=== PATIENT | male | born 1970 | race Caucasian/White ===

== ENCOUNTER 2020-10-22 08:13 | Emergency (ER) | payer OTHER, SELFPAY ==
--- NOTE | ~2020-10-22 | CT_ITS ---
EXAMINATION: CT cervical spine wo con DATE: 10/22/2020 09:00 INDICATION: Left arm weakness TECHNIQUE: Computed tomography (CT) of the cervical spine was performed without intravenous contrast. Automated exposure control and iterative reconstruction technique were employed. The dose-length pro duct was 603.67 mGy-cm. COMPARISON: None FINDINGS: Alignment is normal. Vertebral body heights are normal. No fractures. Mild disc height loss at C6-C7. Multilevel bilateral cervical uncovertebral and facet osteoarthritis. No significant cervical centra l canal or neural foraminal stenosis. Moderate facet osteoarthritis on the right at T2-T3 resulting i n mild right neural foraminal stenosis at this level. Cervical soft tissues, airway and apices of junior gs are unremarkable. IMPRESSION: 1. Minimal to mild cervical spondylosis. No acute osseous abnormality. Reviewed, dictated and finalized at location A. ER MEAT
--- NOTE | ~2020-10-22 | CT_ITS ---
EXAMINATION: CT lumbar spine wo [facility] EXAM DATE: 10/22/2020 09:00 INDICATION: Low back pain and left leg weakness/numbness. Symptoms 5 days. TECHNIQUE: Spiral CT of the lumbar spine was performed without contrast. Axial, coronal and sagittal images were reviewed. The dose-length product (DLP) for this examination was 1313.64 mGy-cm. The exposure was tailored according to patient size (auto mA exposure control), and iterative reconstruct ion (ASIR) was used as additional dose reduction technique. There is no prior study for comparison. FINDINGS: There is moderate disc disease at L5-S1, mild at the other lumbar levels. The vertebral bod ies are aligned in the AP dimension. Vertebral body heights are maintained. There are no acute fractu res identified. No spondylolysis. There are no osteoblastic or osteolytic lesions identified. Sigmoid diverticulosis. Paraspinal soft tissue is unremarkable. Level by level evaluation: T12-L1: Disc does not extend beyond the endplate margin. Facet arthropathy: Mild bilateral. Neural foraminal stenosis: No stenosis. Central canal stenosis: No stenosis. L1-L2: There is a minimal diffuse disc bulge. Facet arthropathy: Mild bilateral. Neural foraminal stenosis: Mild to moderate bilateral. Central canal stenosis: Mild. L2-L3: There is a mild diffuse disc bulge. Facet arthropathy: Mild. Neural foraminal stenosis: Mild to moderate right, mild left. Central canal stenosis: Mild to moderate. L3-L4: There is a mild to moderate diffuse disc bulge. Facet arthropathy: Mild to moderate. Neural foraminal stenosis: Mild to moderate bilateral. Central canal stenosis: Mild to moderate. L4-L5: There is a mild to moderate diffuse disc bulge. Facet arthropathy: Mild to moderate. Neural foraminal stenosis: Mild to moderate bilateral. Central canal stenosis: Mild. L5-S1: There is a mild to moderate diffuse disc bulge. Facet arthropathy: Mild to moderate. Neural foraminal stenosis: Moderate bilateral. Central canal stenosis: Mild. IMPRESSION: L5-S1 moderate spondylosis, mild to moderate at the levels above. No acute findings. Reviewed, dictated and finalized at location B. TH MANAGEMENT DIRECTOR IMPRESSION: L5-S1 moderate spondylosis, mild to moderate at the levels above. N o acute findings.
--- NOTE | ~2020-10-22 | CT_ITS ---
EXAMINATION: CT brain wo con DATE: 10/22/2020 09:01 INDICATION: Arm weakness. Visual disturbance with floaters . TECHNIQUE: Computed tomography (CT) of the head was performed without intravenous contrast. Sagittal and coronal reconstructions were performed. The mA was adjusted according to patient size. Iterative reconstruction technique was employed. The dose-length product was 605.33 mGy-cm. COMPARISON: None FINDINGS: No acute intracranial hemorrhage, acute infarction or abnormal extra axial fluid collection. There is minimal scattered white matter hypoattenuation consistent with chronic small vessel ischemic disease . Ventricles are normal and symmetric. No mass/mass effect. The orbits, paranasal sinuses and mastoi d air cells are normal. IMPRESSION: 1. Minimal scattered white matter hypoattenuation consistent with chronic small vessel ischemic disea se. Reviewed, dictated and finalized at location A. MAKER IMPRESSION: 1. Minimal scattered white matter hypoattenuation consistent with chronic small vessel ischemic disease.
[2020-10-22 08:20] VITALS: BP 157/94; PULSE 102; RESP 16; TEMP 35.7; O2SAT 99
--- NOTE | 2020-10-22 08:37 | ED.BACK ---
HPI - Back Pain/Injury General Chief Complaint: Back Pain/Injury Stated Complaint: Back pain Time Seen by Provider: 10/22/20 08:21 History of Present Illness HPI Narrative: 50 yo male presents to the ED with multiple complaints. He reports that he has had low back pain for about the past year. He has seen his PCP multiple times. She supected disc herniation. No imaging was done, although he apparently has orders for an MRI. She was treating him with muscle relaxers, tramadol, and physical therapy. He did have some improvement, but it got worse over the past week. And yesterday after using the eliptical he says that it went completely numb and he began having motor issues. He does admit that he can feel when something is touching the leg and he is able to walk. He also reports that he has started having weakness in the left arm for the past week. This is intermittent. He has also started having frequent headaches and floaters in his vision. This started after abruptly taking caffeine out of his diet. Review of Systems Review of Systems: All systems reviewed & are unremarkable except as noted in HPI and below Constitutional: Constitutional: Denies chills, Denies fever(s) and Reports weakness Eyes: Comments: Floaters ENT: Reports vertigo Cardiovascular: Cardiovascular: Denies chest pain Respiratory: Respiratory: Denies dyspnea Gastrointestinal: Gastrointestinal: Denies abdominal pain and Denies nausea Neurologic: Denies confusion, Reports dizziness, Reports headache(s), Reports numbness and Reports weakness PMFSH Past Medical History Medical History (Updated 10/22/20 @ 11:21 by Jose Schulz MD) Elevated hemoglobin A1c Social History Social History (Updated 10/22/20 @ 09:02 by Jose Schulz MD) Smoking status: Never smoker Living arrangements: with family Exam Const: General: no acute distress and alert Nutritional Appearance: obese Orientation/consciousness: patient oriented x3 HENMT: Head: normal to inspection and no contusions Ears: TM's normal bilaterally Eyes: Conjunctivae: conjunctivae normal Pupils: Equal, round and reactive pupils present EOM: EOMs intact bilaterally Neck: Neck: normal visual inspection Resp: Effort & Inspection: normal respiratory effort Auscultation: clear to auscultation bilaterally Cardio: Rate: regular rate Rhythm: regular rhythm GI: GI Palp: Yes Soft to palpation and No Tenderness to palpation present (GI) Back/Spine/Pelvis: Other: Negative straight leg raise Skin: General skin exam: normal color Neuro: General: patient oriented x3, moves all extremities, no focal motor deficits and CN's II-XI intact bilaterally Speech: normal speech Gait exam (Neuro): Normal gait present Other: 5/5 strength throughout. Requires coaching for full effort. Extrem: General: normal to inspection and no edema Course Vital Signs Vital signs: Vital Signs Temperature 35.7 C L 10/22/20 08:20 Pulse Rate 102 H 10/22/20 08:20 Respiratory Rate 16 10/22/20 08:20 Blood Pressure 157/94 H 10/22/20 08:20 Pulse Oximetry 99 10/22/20 08:20 Temperature 35.7 C L 10/22/20 08:20 Pulse Rate 81 10/22/20 11:45 Respiratory Rate 16 10/22/20 11:45 Blood Pressure 127/82 10/22/20 11:45 Pulse Oximetry 97 10/22/20 11:45 MDM - Back Pain/Injury MDM Narrative Medical decision making narrative: Feeling and moving better after valium. On-call physician for PCP contacted. They will work on scheduling his MRI. They would like to start him on gabapentin in the mean time. Differential Diagnosis Differential diagnosis: Likely lumbar radiculopathy, sciatica, strain of lumbar region and other (disc herniatio/rupture) Medical Records Attestation: I reviewed the patient's medical records. Lab Data Attestation: I reviewed the patient's lab results. Result diagrams: 10/22/20 09:18 10/22/20 09:18 Labs: Lab Results 10/22/20 10/22/20 Rang
[2020-10-22] MEDS: diazePAM INJ (*CRX) 10 MG/2 ML SYRINGE 5 MG IV PUSH (09:11)
[2020-10-22 09:35] LABS: Basophils Absolute Auto 0.1 K/mm3 (0.0-0.1); Eosinophils Absolute Auto 0.1 K/mm3 (0-0.3); Eosinophils Percent Auto 1.5 % (0-4.4); Hematocrit 48.4 % (42.0-52.0); Hemoglobin 16.3 g/dL (14.0-18.0); Immature Granulocyte Absolute 0.02 K/mm3 (0.00-0.031); Immature Granulocyte Percent A 0.3 % (0-0.5); Lymphocytes Percent Auto 15.1 % (18.3-44.2); Mean Corpuscular HGB Conc 33.7 g/dl (32-36); Mean Platelet Volume 8.4 fl (7.4-10.4); Monocytes Absolute Auto 0.4 K/mm3 (0.1-0.6); Monocytes Percent Auto 5.9 % (2.6-8.5); Neutrophils Absolute Auto 5.6 K/mm3 (1.3-6.7); Neutrophils Percent Auto 76.2 % (45.5-73.1); Platelet Count Result 222 k/mm3 (150-375); Red Blood Count 5.63 M/mm3 (4.6-6.20); Red Cell Distribution Width 13.2 % (11.5-14.5); White Blood Count 7.3 K/mm3 (4.5-10.0)
[2020-10-22 09:48] LABS: Alanine Aminotransferase 53 U/L (4-50); Albumin Level 4.5 g/dL (3.5-5.1); Alkaline Phosphatase 46 U/L (38-126); Anion Gap 7 mmol/L (8-16); Aspartate Amino Transferase 54 U/L (17-59); Bilirubin,Total 0.7 mg/dL (0.2-1.3); Blood Urea Nitrogen 20 mg/dL (9-20); Calcium 9.2 mg/dL (8.4-10.2); Carbon Dioxide 27 mmol/L (22-30); Chloride 104 mmol/L (98-107); Estimated CRCL calculation 120 ml/min; Estimated Glomerular Filt Rate > 60; Glucose 133 mg/dL (75-110); Potassium 4.3 mmol/L (3.4-5.0); Sodium 138 mmol/L (137-145)
[2020-10-22 11:45] VITALS: BP 127/82; PULSE 81; RESP 16; O2SAT 97
== END 2020-10-22 11:45 | disposition home or self-care (01) ==
PROVIDERS: Emergency Provider Emergency Medicine; PCP Family Medicine
DX: M54.5 Low back pain (principal); M47.817 Spondylosis without myelopathy or radiculopathy, lumbosacral region; M47.812 Spondylosis without myelopathy or radiculopathy, cervical region
CPT/HCPCS: 36415; 70450; 72125; 72131; 80053; 85025; 96374; 99284; J3360

== ENCOUNTER 2020-11-05 16:14 | Outpatient (CLI) | payer OTHER, SELFPAY ==
--- NOTE | ~2020-11-05 | US_ITS ---
EXAMINATION: US carotid duplex BI DATE: 11/05/2020 16:56 INDICATION: Vertigo TECHNIQUE: Grayscale, color Doppler, and pulsed Doppler images of the cervical carotid arteries were obtained. The degree of vessel stenosis is placed in one of the following categories: normal, <50%, 5 0-69%, >=70% but less than near-occlusion, near-occlusion, or total occlusion. Note that percent sten osis relative to normal distal artery lumen diameter is indirectly measured from velocity measurement s as described by Jose, et al. Radiology 2003; [id number]. Notes: Normal: Peak systolic velocity <125 centimeters/sec and no plaque <50%. Peak systolic velocity <125 ( EDV <40; ICA/CCA PSV ratio <2.0; used these factors only a tandem lesions or low cardiac output or co ntralateral disease) 50-69 %: PSV 125-230 (EDV 40-100; ratio 2-4) >= 70% but less than near occlusion: PSV greater than 230 (EDV > 100; ratio> 4.0) Near Occlusion: PSV that is variable; markedly narrowed lumen Occlusion: Absent flow on color/spectral Doppler and no lumen on guy scale. COMPARISON: None. FINDINGS: RIGHT: The right common carotid artery (CCA) peak systolic velocity (PSV) is 120 cm/s. The right internal ca rotid artery (ICA) PSV is 70 cm/s. The right ICA end-diastolic velocity (EDV) is 16 cm/s. The right I CA/CCA PSV ratio is 0.6. The external carotid artery (ECA) PSV is 117 cm/s. There is antegrade flow i n the right vertebral artery. LEFT: The left CCA PSV is 157 cm/s. The left ICA PSV is 91 cm/s. The left ICA EDV is 21 cm/s. The left ICA/ CCA PSV ratio is 0.6. The ECA PSV is 83 cm/s. There is antegrade flow in the left vertebral artery. IMPRESSION: 1. Less than 50% stenosis in the right internal carotid artery by sonographic criteria. 2. Less than 50% stenosis in the left internal carotid artery by sonographic criteria. Reviewed, dictated and finalized at location A. ABSTRACTOR IMPRESSION: 1. Less than 50% stenosis in the right internal carotid artery by sonographic hannah anaya. 2. Less than 50% stenosis in the left internal carotid artery by sonographic stacey elliott.
== END 2020-11-05 16:15 | disposition home or self-care (01) ==
PROVIDERS: PCP Psychiatry & Neurology Neurology; Visit Provider Psychiatry & Neurology Neurology
DX: R42 Dizziness and giddiness (principal); I65.23 Occlusion and stenosis of bilateral carotid arteries
CPT/HCPCS: 93880

== ENCOUNTER → 2020-11-10 07:42 | Outpatient (CLI) | payer OTHER, SELFPAY ==
--- NOTE | ~2020-11-10 | MR_ITS ---
EXAMINATION: MR thoracic spine wo/w con EXAM DATE: 11/10/2020 09:10 INDICATION: Multiple sclerosis. TECHNIQUE: Multi-sequential, multiplanar MR images of the thoracic spine were obtained without contra st. Sagittal T1, T2, T2 fat saturation, axial T2 weighted images reviewed. Axial T1 weighted sequenc e. Patient was then injected with 20 mL Multihance intravenous contrast and reimaged. Postcontrast axial and sagittal T1-weighted fat saturation sequences were obtained. There are no prior studies for comparison. FINDINGS: There there is ill-defined region in right-sided conus medullaris with slightly increased T 2 signal consistent with quiescent multiple sclerosis, measuring about 4 mm in greatest axial dimensi on by about 2 cm in length. No enhancing lesions to suggest active disease. The vertebral bodies are aligned in the AP dimension. Vertebral body and disc heights are well-maintained. There are small mid thoracic Schmorl's nodes. Mild to moderate right neural foraminal stenosis from T8 through T12. Other milian neural foramen appear widely patent. There are no suspicious marrow signal abnormalities. Parasp inal soft tissue is unremarkable. There are no areas of abnormal enhancement on the post contrast natali ges. IMPRESSION: 1. Vague conus medullaris signal abnormality suspicious for quiescent multiple sclerosis. No evidence of active disease. 2. Mild to moderate right-sided lower thoracic neural foraminal stenosis. Reviewed, dictated and finalized at location A.
--- NOTE | ~2020-11-10 | MR_ITS ---
EXAMINATION: MR cervical spine wo/w con EXAM DATE: 11/10/2020 09:18 INDICATION: Multiple sclerosis. TECHNIQUE: Multi-sequential, multiplanar MR images of the cervical spine were obtained without contra st. Axial T2, axial T2 MERGE sequence. Sagittal T1, T2, T2 fat saturation images also obtained. Th ere is no prior study for comparison. FINDINGS: There are several small signal abnormalities within the spinal cord measuring about 2 mm i n axial dimension, by about 1 cm each in craniocaudal dimension. One of these identified at the C3 le licha on the right, one at the C5 level on the left and another at the C7 level on the left. Probably s mall regions myelomalacia from prior episode of multiple sclerosis. No expansion to these, and there is no abnormal enhancement on the exam, no evidence of active disease. Level by level evaluation: C2-C3: Disc does not extend beyond the endplate margin. Uncovertebral joint arthropathy: None. Facet joint arthropathy: None. Neural foraminal stenosis: No stenosis. Central canal stenosis: No stenosis. C3-C4: Disc does not extend beyond the endplate margin. Uncovertebral joint arthropathy: Mild bilateral. Facet joint arthropathy: Mild bilateral. Neural foraminal stenosis: Mild right. Central canal stenosis: No stenosis. C4-C5: There is a minimal diffuse disc bulge. Uncovertebral joint arthropathy: Mild bilateral. Facet joint arthropathy: Mild bilateral. Neural foraminal stenosis: Mild to moderate right, mild left. Central canal stenosis: No stenosis. C5-C6: There is a minimal diffuse disc bulge. Uncovertebral joint arthropathy: Mild bilateral. Facet joint arthropathy: Mild bilateral. Neural foraminal stenosis: Mild bilateral. Central canal stenosis: No stenosis. C6-C7: There is a minimal diffuse disc bulge. Uncovertebral joint arthropathy: Mild bilateral. Facet joint arthropathy: Minimal bilateral. Neural foraminal stenosis: Mild bilateral. Central canal stenosis: No stenosis. C7-T1: Disc does not extend beyond the endplate margin. Uncovertebral joint arthropathy: None. Facet joint arthropathy: Mild bilateral. Neural foraminal stenosis: Mild left. Central canal stenosis: No stenosis. IMPRESSION: 1. At least 3 small spinal cord signal abnormalities consistent with quiescent multiple sclerosis. 2. Mild cervical spondylosis. Reviewed, dictated and finalized at location A.
[2020-11-10 08:09] LABS: Estimated Glomerular Filt Rate > 60
== END ==
PROVIDERS: Visit Provider Psychiatry & Neurology Neurology
DX: G35 Multiple sclerosis (principal); M47.892 Other spondylosis, cervical region
CPT/HCPCS: 72156; 72157; A9577

== ENCOUNTER 2021-09-05 07:57 | Outpatient (RCR) | payer OTHER, SELFPAY ==
[2021-09-05 08:05] VITALS: BP 122/80; PULSE 78; RESP 20; TEMP 36.1; O2SAT 99
[2021-09-05 09:24] VITALS: BP 122/80; PULSE 63; O2SAT 99
== END 2021-09-05 17:00 ==
LOC: AMCINF 07:57
PROVIDERS: PCP Internal Medicine Hematology & Oncology; Visit Provider Internal Medicine Hematology & Oncology
DX: U07.1 COVID-19 (principal)
CPT/HCPCS: M0247; Q0247